=== PATIENT | male | born 1930 | race Caucasian/White ===

== ENCOUNTER 2017-09-23 09:03 | Day surgery (SDC) | payer MEDICARE, BC ==
--- NOTE | 2017-09-15 06:58 | HP ---
PREOPERATIVE HISTORY AND PHYSICAL: DATE OF SURGERY/ADMISSION: 09/23/17 ATTENDING SURGEON: Lisa Marcos MD * (DICTATED BY ELSA STARKS) CHIEF COMPLAINT: Numbness and tingling bilateral hands, right greater than left. HISTORY OF PRESENT ILLNESS: This is an 86-year-old male who complains of pain, numbness, and tingling primarily in his right hand. He is less symptomatic in his left hand. Symptoms have been going on for about a month. He does not recall any injury. He has pain quite consistently in his hand. Numbness and tingling often awaken him at night. He had a nerve conduction study, which showed moderately severe carpal tunnel in both hands, but worse on the right. He is interested in proceeding with surgical intervention at this time in the form of a right carpal tunnel release. The patient is on Eliquis and we will plan on him remaining on the medication perioperatively. His civilian jail officer is Dr. Glass and we will get clearance from Dr. Glass prior to proceeding with surgery. PAST MEDICAL HISTORY: 1. Atrial flutter. 2. Coronary artery disease. 3. Hypercholesterolemia. 4. History of prostate cancer. 5. History of claudication. 6. History of kidney stones. 7. Myositis. 8. Hypertension. 9. Atrial fibrillation. 10. Obstructive sleep apnea. 11. Essential tremor. 12. History of heart murmur. PAST SURGICAL HISTORY: 1. CABG in 1994. 2. Prostatectomy in 1993. 3. Tonsillectomy, adenoidectomy. 4. AV letty ablation. 5. Rotator cuff repair in 2005. 6. Lithotripsy for kidney stones. CURRENT MEDICATIONS: 1. Acetaminophen extra strength 500 mg 2 tabs p.r.n. 2. Calcium 600 mg daily. 3. Eliquis 5 mg twice a day. 4. Felodipine ER 5 mg 1 tab daily. 5. Fish oil 1000 mg daily. 6. Irbesartan 75 mg daily. 7. Klor-Con M20 20 mEq 1 tab daily. 8. Metoprolol succinate ER 25 mg daily. 9. Multivitamin daily. 10. Rosuvastatin calcium 5 mg daily. 11. Spironolactone 50 mg daily. 12. Torsemide 20 mg 2 tabs weekly. ALLERGIES: DIOVAN and WELCHOL, unknown reactions. FAMILY MEDICAL HISTORY: Cancer. SOCIAL HISTORY: The patient is retired. He is a former cigar smoker, he quit approximately 30 years ago. He denies recreational drug use and does not drink alcohol. REVIEW OF SYSTEMS: General: Negative for fevers, chills, night sweats, unexplained weight loss or gain. No known anesthesia problems in the past. HEENT: Negative for headache, lightheadedness, syncopal episodes, visual changes. Integumentary: Negative for abrasions, lesions, open wounds. Cardiothoracic: Negative for hypertension, chest pain, palpitations, edema. Respiratory: Negative for shortness of breath with exertion, chronic cough, wheezing. GI: Negative for nausea, vomiting, diarrhea, constipation, GERD. : Negative for nocturia, urinary frequency, urgency, history of UTIs. Musculoskeletal: Positive for current complaint. Positive for chronic back pain. Neurological: Negative for paresthesias, history of seizure, stroke, poor balance. Endocrine: Negative for diabetes and thyroid issues. Hematologic: Negative for easy bruising, anemia, bleeding disorders, history of DVT. Infectious Disease: Negative for history of MRSA, hepatitis C, HIV. PHYSICAL EXAMINATION GENERAL: Well-developed, well-nourished 86-year-old male in no acute distress. VITAL SIGNS: Height 5 feet 7-1/4 inches, weight 172 pounds. Pulse rate 66, blood pressure 108/68. HEENT: Normocephalic, atraumatic. Pupils are equal, round, and reactive to light and accommodation. Extraocular movements are intact. Throat is clear. NECK: Supple. No palpable lymph nodes. PULMONARY: Lungs are clear to auscultation bilaterally. No wheezes, rales, or rhonchi. CARDIOVASCULAR: Regular rate and rhythm. S1, S2. Mild murmur detected with auscultation. No rubs or gallops. No edema. ABDOMEN: Positive bowel sounds. Soft, nontender. NEUROLOGICAL: Alert and oriented x3. Cranial nerves II through XII are intact. Sensation is intact to light touch. MUSCULOSKELETAL: On exam of his right upper extremity, he has thenar wasting and marked weakness with thumb abduction. He has full flexion and extension of his fingers. He has decreased sensation to light touch throughout the median nerve distribution on the right and a positive Tinel's sign on the right. IMAGING STUDIES: EMG nerve conduction study shows moderately severe carpal tunnel syndrome. IMPRESSION: Right carpal tunnel syndrome. PLAN: The patient is scheduled to undergo a right wrist carpal tunnel release with Dr. Marcos on 09/23/17. He will return to the office 10 days postop for followup and suture removal. A prescription for Tylenol No. 3 was e-scribed to the patient's pharmacy for postoperative pain management. He will stay on Eliquis perioperatively and we will get a note of clearance from his civilian jail officer, Dr. Glass, prior to proceeding with surgery. ELSA STARKS [id number]/[facility] #: [id number] MAMI
[~2017-09-23 09:03] MED LIST: Buffered Lidocaine 0.9% SYRIN* 5 ML/SYR SYRINGE INTRADERM ONE; Lidocaine 1% INJ* 10 MG/ML 30 ML SDV ONE; Lidocaine 2% PF * 5 ML VIAL ONE; Propofol* 10 MG/ML 20 ML BTL IV PUSH ONE; fentaNYL* 50 MCG/ML 2 ML VIAL (100 MCG VIAL) ONE
[2017-09-23] MEDS ORDERED: Acetaminophen TAB* 325 MG PO PRN (10:09)
[2017-09-23] MEDS ORDERED: Ondansetron INJ* 2 MG/ML VIAL IV PRN (10:09)
[2017-09-23] MEDS ORDERED: fentaNYL* 50 MCG/ML 2 ML VIAL (100 MCG VIAL) IV PRN (10:09)
[2017-09-23] MEDS ORDERED: HYDROmorphone INJ* 1 MG/ML CARPUJECT SYRINGE IV PRN (10:09)
[2017-09-23] MEDS ORDERED: Naloxone* 0.4 MG/ML 1 ML VIAL IV PRN (10:09)
[2017-09-23] MEDS ORDERED: Ibuprofen TAB* 400 MG PO PRN (10:09)
[2017-09-23 11:27] VITALS: BP 111/58
--- NOTE | 2017-09-24 04:26 | OP ---
DATE OF OPERATION: 09/23/17 [facility] DATE OF : 09/29/28 SURGEON: Dr. Marcos. USABILITY SPECIALIST: ELSA Robin ANESTHESIA: Local MAC. PRE-OP DIAGNOSIS: Right carpal tunnel syndrome. POST-OP DIAGNOSIS: Right carpal tunnel syndrome. OPERATIVE PROCEDURE: Right carpal tunnel release. ESTIMATED BLOOD LOSS: Zero. TOURNIQUET TIME: About 5 minutes. INDICATION FOR PROCEDURE: Jhon is an 86-year-old man with numbness and tingling in the median nerve distribution of his right hand. He presents for right carpal tunnel release. DESCRIPTION OF PROCEDURE: The patient was brought to the operating room, was given a sedation anesthetic, and a local infiltration of 10 cc of 1% plain lidocaine in the palm of his right hand. The skin of his right hand and forearm was prepped and draped in the usual sterile fashion. The hand and forearm were exsanguinated and tourniquet elevated to 250 mmHg. A longitudinal incision was made in the palm in line with the ring finger. We dissected through the subcutaneous tissue down to the transverse carpal ligament. The ligament was divided sharply with a knife and then more proximally with a scissors. The nerve was dissected free from the surrounding tissue and there was an area of moderate compression at the mid portion of the ligament. The wound was irrigated and the skin edges reapproximated with 4-0 nylon suture. The wound was dressed with Xeroform, 4x4, Webril, and an Darrell wrap. The patient tolerated the procedure well and was brought to the recovery room in good condition. [id number]/[facility] #: [id number] [facility]
== END 2017-09-23 11:24 | disposition home or self-care (01) ==
LOC: OREAST 09:03
PROVIDERS: ATTEND Orthopaedic Surgery
DX: G56.01 Carpal tunnel syndrome, right upper limb (principal); I48.91 Unspecified atrial fibrillation; Z79.01 Long term (current) use of anticoagulants; I25.10 Atherosclerotic heart disease of native coronary artery without angina pectoris; Z87.891 Personal history of nicotine dependence; G47.33 Obstructive sleep apnea (adult) (pediatric); R25.1 Tremor, unspecified; Z85.46 Personal history of malignant neoplasm of prostate
CPT/HCPCS: J2704; J3010

== ENCOUNTER 2018-02-27 10:40 | Emergency (ER) | payer MEDICARE, BC ==
[2018-02-27] MEDS ORDERED: Tetan/Diph/Pertus SYR(Tdap)* 0.5 ML SYR(BOOSTRIX) use SYR IM ONE (10:41)
[2018-02-27 10:58] VITALS: BP 143/79
--- NOTE | 2018-02-27 11:08 | UC ---
Laceration HPI - HPI Summary HPI Summary: 87 yo male presents with right leg laceration sustained 3 days ago. Pt says that he was going up the last step of the house and fell forward scraping his anterior lower leg against the steps. Did not hit his head. He sustained an abrasion to his right lower leg. He tells me that he has been bandaging the area daily, but the area continues to bleed. He takes eliquis. - History Of Current Complaint Chief Complaint: UCLowerExtremity Stated Complaint: LEG LAC Time Seen by Provider: 02/27/18 11:07 Hx Obtained From: Patient Mechanism Of Injury: Blunt Trauma Pain Intensity: 0 Pain Scale Used: 0-10 Numeric - Allergies/Home Medications Allergies/Adverse Reactions: Allergies Allergy/AdvReac Type Severity Reaction Status Date / Time colesevelam [From WelChol] Allergy Unknown Verified 02/27/18 10:59 Reaction Details valsartan [From Diovan] Allergy Unknown Verified 02/27/18 10:59 Reaction Details Home Medications: Home Medications Felodipine (NF) [Plendil (NF)] 1 tab PO DAILY 02/27/18 [History Confirmed ] Irbesartan 1 tab PO DAILY 02/27/18 [History Confirmed 02/27/18] Propranolol HCl 1 tab PO DAILY 02/27/18 [History Confirmed 02/27/18] PMH/Surg Hx/FS Hx/Imm Hx Endocrine History: Dyslipidemia Cardiovascular History: Cardiac Disease, Hypertension - Surgical History Surgical History: Yes Surgery Procedure, Year, and Place: CABG 1993 5 VESSEL ( [place]) , PROSTATECTOMY 1994, KIDNEY STONE REMOVAL 2010. RT shoulder - rotator cuff REPAIR 2009. TONSILLECTOMY 193. AV ISAIAS ISAIAS ABLATION 1994, - Family History Family History: No FHx of Malignant hyperthermia. No FHx of anesthesia reaction - Social History Alcohol Use: None Substance Use Type: None Smoking Status (MU): Former Smoker Type: Cigars Amount Used/How Often: 3 CIGARS PER WEEK When Did the Patient Quit Smoking/Using Tobacco: 1979 - Immunization History Most Recent Tetanus Shot: UNK Review of Systems Constitutional: Negative Skin: Other - Abrasion right lower leg Respiratory: Negative Cardiovascular: Negative Neurovascular: Negative Musculoskeletal: Negative Neurological: Negative Psychological: Negative All Other Systems Reviewed And Are Negative: Yes Physical Exam - Summary Physical Exam Summary: GENERAL: NAD. WDWN. No pain distress. SKIN: Anterior right lower leg with 3.0cm vertical superficial abrasion with 1.0cm width. Not actively bleeding. Clean and without FB. No surrounding erythema or warmth. NECK: Supple. Nontender. No lymphadenopathy. CHEST: No accessory muscle use. Breathing comfortably and in no distress. CV: Pulses intact. Cap refill <2seconds NEURO: Alert. PSYCH: Age appropriate behavior. Triage Information Reviewed: Yes Vital Signs: Initial Vital Signs Temp 97.9 F 02/27/18 10:51 Pulse 78 02/27/18 10:51 Resp 18 02/27/18 10:51 BP 143/79 02/27/18 10:51 Pulse Ox 100 02/27/18 10:51 Laceration Course/Dx - Course/Dx Course Of Treatment: The area was cleansed with 500mL NS. Wound was bandaged with mepilex and pt advised to continue dressing changes daily and elevate his leg with ice. F/u with PCP for a wound recheck within 1 week. - Differential Dx - Laceration/Wound Provider Diagnoses: Abrasion right lower leg Discharge - Sign-Out/Discharge Documenting (check all that apply): Patient Departure All imaging exams completed and their final reports reviewed: No Studies - Discharge Plan Condition: Stable Disposition: HOME Patient Education Materials: Acute Wound Care (ED) Referrals: Jhon Mckoy MD [Primary Care Provider] - 4 Days Additional Instructions: If you develop a fever, shortness of breath, chest pain, new or worsening symptoms - please call your PCP or go to the ED. Your blood pressure was mildly elevated at todays visit. Please see your primary provider within 4 weeks for recheck and re-evaluation. 1) Please change the dressing once a day and elevate your leg as much as possible to allow your leg wound to stop bleeding and heal. 2) Please schedule a follow up appointment with your PCP within 1 week for a wound check. - Billing Disposition and Condition Condition: STABLE Disposition: Home
== END 2018-02-27 11:49 | disposition home or self-care (01) ==
LOC: UCEAST 10:40
DX: S80.811A Abrasion, right lower leg, initial encounter (principal); I10 Essential (primary) hypertension; Z79.899 Other long term (current) drug therapy; Z87.891 Personal history of nicotine dependence; Z88.8 Allergy status to other drugs, medicaments and biological substances; Z95.1 Presence of aortocoronary bypass graft; W10.9XXA Fall (on) (from) unspecified stairs and steps, initial encounter; Y92.9 Unspecified place or not applicable
CPT/HCPCS: 99212; G0463

== ENCOUNTER 2018-06-18 16:12 | Emergency (ER) | payer MEDICARE, BC ==
[2018-06-18 17:15] VITALS: BP 131/65
--- NOTE | 2018-06-18 17:58 | UC ---
Respiratory Complaint HPI - HPI Summary HPI Summary: 87 y/o male presents to the urgent care accompany by c/o productive cough for the past week. Symptoms started with URI and yesterday cough has worsen w/ subjective low grade fever and chills at home. He has fatigue today w/ body aches. Pain is 6/10. He has taken Tylenol PO today to alleviate symptoms. Pt denies SOB, chest pain, palpitations, dizziness, abdominal pain, N/V/D. Pt had the influenza vaccine this year. - History of Current Complaint Chief Complaint: UCRespiratory Stated Complaint: COUGH Time Seen by Provider: 06/18/18 17:30 Hx Obtained From: Patient Onset/Duration: Gradual Onset, Lasting Weeks - 1 week, Still Present, Worse Since - today Timing: Constant Severity Initially: Mild Severity Currently: Moderate Pain Intensity: 6 Pain Scale Used: 0-10 Numeric Character: Cough: Productive, Sputum Description: - yellowish Aggravating Factors: Recumbent Position Alleviating Factors: OTC Meds Associated Signs And Symptoms: Positive: Fever - mild low grade fever at home, Chills, URI, Nasal Congestion. Negative: Wheezing - Risk Factors Pulmonary Embolism Risk Factors: Negative Cardiac Risk Factors: Negative Pseudomonas Risk Factors: Negative Tuberculosis Risk Factors: Negative - Allergies/Home Medications Allergies/Adverse Reactions: Allergies Allergy/AdvReac Type Severity Reaction Status Date / Time colesevelam [From WelChol] Allergy Unknown Verified 06/18/18 17:15 Reaction Details valsartan [From Diovan] Allergy Unknown Verified 06/18/18 17:15 Reaction Details Home Medications: Home Medications Potassium Chloride [Klor-Con M20] 20 meq PO DAILY 06/18/18 [History Confirmed ] PMH/Surg Hx/FS Hx/Imm Hx Previously Healthy: Yes Endocrine History: Dyslipidemia Cardiovascular History: Cardiac Disease, Hypertension - Surgical History Surgical History: Yes Surgery Procedure, Year, and Place: CABG 1993 5 VESSEL ( [place]) ,. PROSTATECTOMY 1994,. KIDNEY STONE REMOVAL 2010. RT shoulder - rotator cuff REPAIR 2009. TONSILLECTOMY 1938. AV ISAIAS ABLATION 1994, - Family History Known Family History: Positive: Cardiac Disease, Hypertension, Non-Contributory Family History: No FHx of Malignant hyperthermia. No FHx of anesthesia reaction - Social History Occupation: Retired Lives: With Family Alcohol Use: None Substance Use Type: None Smoking Status (MU): Former Smoker Type: Cigars Amount Used/How Often: 3 CIGARS PER WEEK When Did the Patient Quit Smoking/Using Tobacco: 1979 - Immunization History Most Recent Tetanus Shot: UNK Review of Systems All Other Systems Reviewed And Are Negative: Yes Constitutional: Positive: Fever - subjective low grade fever at home, Fatigue, Other - body aches Skin: Positive: Negative Eyes: Positive: Negative ENT: Positive: Nasal Discharge - clear Respiratory: Positive: Cough - productive with yellowish phlegm Cardiovascular: Positive: Negative Gastrointestinal: Positive: Negative Genitourinary: Positive: Negative Motor: Positive: Negative Neurovascular: Positive: Negative Musculoskeletal: Positive: Negative Neurological: Positive: Negative Psychological: Positive: Negative Is Patient Immunocompromised?: No Physical Exam - Summary Physical Exam Summary: Vital Signs Reviewed: Yes General: well developed, well nourished male sitting in the examining table w/o any apparent distress Eyes: Positive: Conjunctiva Clear - PERRLA, EOMI, fundi grossly normal ENT: Positive: Normal ENT inspection, Hearing grossly normal, Pharynx normal, Nasal congestion - edematous and erythematous nasal mucosa, Nasal drainage - yellowish drainage, TMs normal. Negative: Tonsillar swelling, Tonsillar exudate Neck: Positive: Supple, Nontender, No Lymphadenopathy Respiratory: no orthopnea or dyspnea. Able to speak in full sentences, no retractions or accessory muscle use, no tripod position, stridor, or head bobbing. Positive breath sounds bilaterally. mild diffuse scattered rhonchi on b/L lungs, no wheezes, no crackles or rales. Cardiovascular: Positive: RRR, No Murmur, Pulses Normal, Brisk Capillary Refill Abdomen Description: Positive: Nontender, No Organomegaly, Soft. Negative: CVA Tenderness (R), CVA Tenderness (L) Bowel Sounds: Positive: Present Musculoskeletal Exam: Normal Musculoskeletal: Positive: Strength Intact, ROM Intact, No Edema Neurological Exam: Normal Psychological Exam: Normal Skin Exam: Normal Triage Information Reviewed: Yes Vital Signs: Initial Vital Signs Temp 99.7 F 06/18/18 17:10 Pulse 72 06/18/18 17:10 Resp 17 06/18/18 17:10 BP 131/65 06/18/18 17:10 Pulse Ox 99 06/18/18 17:10 Diagnostic Evaluation - Laboratory O2 Sat by Pulse Oximetry: 99 Respiratory Course/Dx - Course Course Of Treatment: 87 y/o male presents to the urgent care accompany by c /o productive cough for the past week. Symptoms started with URI and yesterday cough has worsen w/ subjective low grade fever and chills at home. He has fatigue today w/ body aches. Pain is 6/10. He has taken Tylenol PO today to alleviate symptoms. Pt denies SOB, chest pain, palpitations, dizziness, abdominal pain, N/V/D. Pt had the influenza vaccines this year. Hx obtained. Rapid Influenza A&B ordered: negative. Chest X-ray ordered to r/o pneumonia. Impression: findings consistent with COPD no acute finding as per radiologist. Pt with mild diffuse scattered rhonchi in posterior lungs. No crackles or wheezes or rales. O2sat: 99%. Findins explained to Pt and . Pt will be tx for Acute Bronchitis, Rx Doxycycline PO and Tessalon tabs PO , first dose given at the clinic tonigh by the nurse. Pt toleated well medication. Strongly advised to f/u with his PCP in 2 days to make sure symptoms are improving since he has a muscle biosy procedure on 06/21/2018. D/c instructions explained. and Pt understood and agreed with D/C instructions and left the clinic hemodynamically stable. - Differential Dx/Diagnosis Differential Diagnosis/HQI/PQRI: Asthma, Bronchitis, Influenza, Sinusitis, Other - pneumonia, COPD Provider Diagnosis: Acute bronchitis Discharge - Sign-Out/Discharge Documenting (check all that apply): Patient Departure - D/C home All imaging exams completed and their final reports reviewed: Yes - Discharge Plan Condition: Stable Disposition: HOME Prescriptions: Benzonatate CAP* [Tessalon 100 MG CAP*] 100 mg PO TID #21 cap DOXYcycline CAP(*) [DOXYcycline 100MG CAP(*)] 100 mg PO BID #13 cap Patient Education Materials: Acute Bronchitis (ED) Referrals: Jhon Mckoy MD [Primary Care Provider] - Additional Instructions: 1- Influenza A&B is negative 1-Please take full course of Doxycycline PO as directed to avoid resistance. first dose given today at the clinic 2-Take Tessalon PO tabs as directed to alleviate cough. Increase fluid intake, rest and eat well. 3- If symptoms do not improve or worsen or your develop SOB with fever and wheezing please go immediately to the ER further evaluation and treatment. 4- F/u with your PCP in 2- to make sure symptoms are improving before the procedure that is schedule for Tuesday06/21/2018 - Billing Disposition and Condition Condition: STABLE Disposition: Home
[2018-06-18 18:11] LABS: Influenza A Molecular NEGATIVE (Negative); Influenza B Molecular NEGATIVE (Negative)
[2018-06-18] MEDS ORDERED: DOXYcycline CAP(*) 100 MG PO ONE (18:24)
[2018-06-18] MEDS ORDERED: Benzonatate CAP* 100 MG PO ONE (18:25)
== END 2018-06-18 18:48 | disposition home or self-care (01) ==
LOC: UCEAST 16:12
DX: J20.9 Acute bronchitis, unspecified (principal); I10 Essential (primary) hypertension; Z88.8 Allergy status to other drugs, medicaments and biological substances; Z87.891 Personal history of nicotine dependence
CPT/HCPCS: 71046; 99212; A9270-GY; G0463

== ENCOUNTER 2018-09-01 11:32 | Emergency (ER) | payer MEDICARE, BC ==
--- NOTE | 2018-09-01 13:00 | ED ---
Head Injury - HPI Summary HPI Summary: Pt is an 87 y/o M presenting to the ED with a chief complaint of a fall. He was walking out of a meeting this morning when he tripped and fell, hitting his head on the pavement. He reports broken skin on his R eyebrow and an abrasion on his R knee. He denies any myalgias. He is on anticoagulants, and is UTD on his tetanus shot. His leg has been weak for a while, and states he is in the process of figuring out the cause of this. - History Of Current Complaint Chief Complaint: EDHeadInjury Stated Complaint: HEAD INJURY PER NURSE Time Seen by Provider: 09/01/18 12:42 Hx Obtained From: Patient Mechanism Of Injury: Fall From A Standing Position Onset/Duration: Started Hours Ago, Resolved Onset of Pain: Immediate Severity Currently: None Severity Initially: Mild Pain Intensity: 0 Pain Scale Used: 0-10 Numeric Location of Head Injury: Frontal Character: Aching Associated Signs And Symptoms: Other: - skin abrasions Anticoagulant Therapy: Other: - eliquis - Allergies/Home Medications Allergies/Adverse Reactions: Allergies Allergy/AdvReac Type Severity Reaction Status Date / Time colesevelam [From WelChol] Allergy Unknown Verified 09/01/18 11:38 Reaction Details valsartan [From Diovan] Allergy Unknown Verified 09/01/18 11:38 Reaction Details PMH/Surg Hx/FS Hx/Imm Hx Previously Healthy: Yes Endocrine/Hematology History: Reports: Hx Anticoagulant Therapy - eliquis Denies: Hx Diabetes, Hx Thyroid Disease Cardiovascular History: Reports: Hx Coronary Artery Disease - ON MEDS, Hx Hypertension - ON MEDS PT. 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 DID NOT MENTION DURING INTERVIEW FOUND IN HX, Other Respiratory Problems/Disorders Denies: Hx Asthma, Hx Chronic Obstructive Pulmonary Disease (COPD) GI History: Denies: Hx Ulcer History: Reports: Hx Kidney Stones - 2010, Other Problems/Disorders - PROSTATE CA WITH PROSTATECTOMY IN 1993 Denies: Hx Renal Disease Musculoskeletal History: Reports: Hx Arthritis - NECK WITH ARTHRITIS, Other Musculoskeletal History - CARPAL TUNNEL Denies: Hx Scoliosis Sensory History: Reports: Hx Cataracts - SUSAN, Hx Contacts or Glasses - DRIVING GLASSES Denies: Hx Hearing Aid Opthamlomology History: Reports: Hx Cataracts - SUSAN, Hx Contacts or Glasses - DRIVING GLASSES Neurological History: Reports: Hx Nerve Disease - ESSENTIAL TREMOR, Other Neuro Impairments/Disorders - NUEROPATHY Denies: Hx Headaches Psychiatric History: Denies: Hx Panic Disorder - Cancer History Cancer Type, Location and Year: PROSTATE - PROSTECTOMY Hx Chemotherapy: No Hx Radiation Therapy: No - Surgical History Surgery Procedure, Year, and Place: CABG 1993 5 VESSEL ( BYPASS) ,. PROSTATECTOMY 1994,. KIDNEY STONE REMOVAL 2010. RT shoulder - rotator cuff REPAIR 2009. TONSILLECTOMY 1938. AV ISAIAS ABLATION 1994, Hx Anesthesia Reactions: No Infectious Disease History: No Infectious Disease History: Denies: Hx Clostridium Difficile, Hx Hepatitis, Hx Human Immunodeficiency Virus (HIV), Hx of Known/Suspected MRSA, Hx Shingles, Hx Tuberculosis, Hx Known/ Suspected VRE, Hx Known/Suspected VRSA, History Other Infectious Disease, Traveled Outside the [place] in Last 30 Days - Family History Known Family History: Positive: Cardiac Disease, Hypertension, Non-Contributory Family History: No FHx of Malignant hyperthermia. No FHx of anesthesia reaction - Social History Alcohol Use: None Substance Use Type: Reports: None Hx Tobacco Use: No Smoking Status (MU): Former Smoker Type: Cigars Amount Used/How Often: 3 CIGARS PER WEEK Review of Systems Negative: Myalgia Positive: Other - abrasions on forehead and knee All Other Systems Reviewed And Are Negative: Yes Physical Exam - Summary Physical Exam Summary: Appearance: The patient is well-nourished in no acute distress and in no acute pain. Skin: The skin is warm and dry and skin color reflects adequate perfusion. There are abrasions on the R eyebrow and knee, and a healing abrasion on the R thigh that is several days old. HEENT: The head is normocephalic and atraumatic. The pupils are equal and reactive. The conjunctivae are clear and without drainage. Nares are patent and without drainage. Mouth reveals moist mucous membranes and the throat is without erythema and exudate. The external ears are intact. The ear canals are patent and without drainage. The tympanic membranes are intact. Neck: The neck is supple with full range of motion and non-tender. There are no carotid bruits. There is no neck vein distension. Respiratory: Chest is non-tender. Lungs are clear to auscultation and breath sounds are symmetrical and equal. Cardiovascular: Heart is regular rate and rhythm. There is no murmur or rub auscultated. There is no peripheral edema and pulses are symmetrical and equal. Abdomen: The abdomen is soft and non-tender. There are normal bowel sounds heard in all four quadrants and there is no organomegaly palpated. Musculoskeletal: There is no back tenderness noted. Extremities are non-tender with full range of motion. There is good capillary refill. There is no peripheral edema or calf tenderness elicited. Neurological: Patient is alert and oriented to person, place and time. The patient has symmetrical motor strength in all four extremities. Cranial nerves are grossly intact. Deep tendon reflexes are symmetrical and equal in all four extremities. Psychiatric: The patient has an appropriate affect and does not exhibit any anxiety or depression. Triage Information Reviewed: Yes Vital Signs On Initial Exam: Initial Vitals Temp Pulse Resp BP Pulse Ox 98.1 F 88 16 180/96 97 09/01/18 11:33 09/01/18 11:33 09/01/18 11:33 09/01/18 11:33 09/01/18 11:33 Vital Signs Reviewed: Yes - [place] Coma Scale Best Eye Response: 4 - Spontaneous Best Motor Response: 6 - Obeys Commands Best Verbal Response: 5 - Oriented Coma Scale Total: 15 Diagnostics - Vital Signs Vital Signs Temp Pulse Resp BP Pulse Ox 09/01/18 12:49 79 96 09/01/18 11:33 98.1 F 88 16 180/96 97 - Laboratory Lab Statement: Any lab studies that have been ordered have been reviewed, and results considered in the medical decision making process. - CT Brain CT CT Interpretation Completed By: Radiologist Summary of CT Findings: NO ACUTE INTRACRANIAL PATHOLOGY. CHRONIC SMALL VESSEL ISCHEMIC CHANGES. ED physician has reviewed this report. Head Injury Course/Dx Course Of Treatment: Mr. Jiang had a mechanical fall out in the parking lot. He sustained a small abrasion to his right knee and to his right eyebrow area. He has no complaints but he is on an anticoagulant and a CT scan was obtained. He was read as negative per radiology. - Diagnoses Provider Diagnoses: Head injury Discharge - Sign-Out/Discharge Documenting (check all that apply): Patient Departure Patient Received Moderate/Deep Sedation with Procedure: No - Discharge Plan Condition: Stable Disposition: HOME Referrals: Jhon Mckoy MD [Primary Care Provider] - Additional Instructions: F/u with your PCP in 2-3 days. Return to the ED with any new or worsening symptoms. - Billing Disposition and Condition Condition: STABLE Disposition: Home - Attestation Statements Document Initiated by Scribe: Yes Documenting Scribe: Alexia Ruiz Provider For Whom Scribe is Documenting (Include Credential): Tony Mott MD. Scribe Attestation: Alexia Jacobs, deioned for Tony Mott MD. on 09/01/18 at 1457. Scribe Documentation Reviewed: Yes Provider Attestation: The documentation as recorded by the [email or web address] accurately reflects the service I personally performed and the decisions made by , Tony Mott MD. Status of Scribe Document: Viewed
[2018-09-01 13:06] VITALS: BP 169/84
== END 2018-09-01 13:05 | disposition home or self-care (01) ==
LOC: ED 11:32
DX: S09.90XA Unspecified injury of head, initial encounter (principal); S80.211A Abrasion, right knee, initial encounter; S00.211A Abrasion of right eyelid and periocular area, initial encounter; W18.30XA Fall on same level, unspecified, initial encounter; Y92.89 Other specified places as the place of occurrence of the external cause; I25.10 Atherosclerotic heart disease of native coronary artery without angina pectoris; I10 Essential (primary) hypertension; Z79.01 Long term (current) use of anticoagulants; Z87.891 Personal history of nicotine dependence
CPT/HCPCS: 70450; 99282